=== PATIENT | female | born 1960 ===

== ENCOUNTER → 2019-06-09 | Outpatient (CLI) | payer MEDICARE, OTHER ==
--- NOTE | 2019-06-09 13:15 | RADIOLOGY REPORT (SQ) ---
EXAM DESCRIPTION: NM GASTRIC EMPTYING STUDY COMPLETED DATE/TIME: 06/09/2019 1:00 pm REASON FOR STUDY: DIABETES (E11.9), EARLY SATIETY (R68.81) K21.9 GASTRO-ESOPHAGEAL REFLUX DISEASE W ITHOUT ESOPHAGITIS R68.81 EARLY SATIETY COMPARISON: None RADIONUCLIDE AND DOSE: 2.17 millicuries Tc-99m Sulfur Colloid. A wide variety of solid foods have been used. The route of agent administration: Oral. TECHNIQUE: 1 minute serial static imaging performed at time of meal, 1 hour, 2 hours, 3 hours, and 4 hours as needed. Once stomach reaches 90% emptying, the test is complete. Image intensity values pl otted with respect to time with linear regression algorithm. LIMITATIONS: None. FINDINGS: Patient was observed for 4 hours. Immediate post meal serves as baseline. Gastric emptying at 60 minutes was 1%. Gastric emptying at 90 minutes was 6% Gastric emptying at 120 minutes was 18%. Gastric emptying at 240 minutes was 98%. Normal values: 60 minutes: 30-90% retained. If less than 30%, abnormally rapid emptying. If greater than 90%, delaye d gastric emptying. 120 minutes: <60% retained. If greater than 60%, delayed gastric emptying. 240 minutes: <10% retained. If greater than 10%, delayed gastric emptying. IMPRESSION: Delayed gastric emptying. Patient ultimately emptied at the 4 hour darian. TECHNICAL DOCUMENTATION: JOB ID: [id number] [email or web address] Rights Reserved Reading location - IP/workstation name: [email or web address]
== END ==
LOC: RAD 07:48
PROVIDERS: ATTEND Internal Medicine Gastroenterology
DX: K21.9 Gastro-esophageal reflux disease without esophagitis (principal); K30 Functional dyspepsia; R68.81 Early satiety
CPT/HCPCS: 78264; A9541